=== PATIENT | female | born 1985 | race Caucasian/White ===

== ENCOUNTER 2020-09-08 10:49 | Outpatient (CLI) | payer OTHER, SELFPAY | END 2020-09-08 10:50 | disposition home or self-care (01) | LOC: ANHSURGERY 10:52 | PROVIDERS: PCP Family Medicine; Visit Provider Obstetrics & Gynecology | DX: N92.0 Excessive and frequent menstruation with regular cycle (principal); Z01.818 Encounter for other preprocedural examination | CPT/HCPCS: 36415; 86850; 86900; 86901 ==

== ENCOUNTER 2020-09-13 00:28 | Outpatient (CLI) | payer OTHER, SELFPAY ==
[2020-09-13 21:18] LABS: SARS-CoV-2 RNA PCR Negative
== END 2020-09-13 00:29 | disposition home or self-care (01) ==
LOC: ANHCOVIDDT 00:28
PROVIDERS: PCP Family Medicine; Visit Provider Obstetrics & Gynecology
DX: Z01.812 Encounter for preprocedural laboratory examination (principal); Z20.828 Contact with and (suspected) exposure to other viral communicable diseases
CPT/HCPCS: 87635; C9803; U0003

== ENCOUNTER 2020-09-16 01:04 | Day surgery (SDC) | payer OTHER, SELFPAY ==
[2020-09-01 15:40] VITALS: BMI 23.3
--- NOTE | 2020-09-15 11:52 | WPDANESEPPF ---
Anes - Initial Pre Proc Eval Procedure: Operation Date: 09/16/20 07:30 Proposed Procedures p Total Laparoscopic Hysterectomy, Bilateral Salpingo-Oophorectomy - Becki Desir MD Date/Time: 09/15/20 11:52 Surgeon: Becki Desir MD Pre Op Diagnosis: menorrhaghia Patient Data Age: 35 Gender: F Height: 1.63 m Weight: 61.69 kg Allergies Allergy/AdvReac Type Severity Reaction Status Date / Time cefaclor Allergy Mild Hives Verified 06/12/20 13:14 Home Medications Medication Instructions Recorded Confirmed Type wpguldap-jsq-odnw-FA-Ca carb-vit K 1 tablet PO DAILY 06/12/20 09/16/20 History 18 mg iron-400 mcg-500 mg tablet norethindrone (contraceptive) 0.35 0.35 mg PO DAILY 06/12/20 09/16/20 History mg tablet Patient hx anesthesia problems: none Family hx anesthesia problems: none PMFSH Past Medical History Medical History (Updated 09/15/20 @ 11:54 by Merrill Guadarrama MD) Anxiety Rheumatoid arthritis Tobacco abuse Family History Family History Mother Diabetes mellitus Hypertension Ovarian cancer Father Diabetes mellitus Grandparent Hypertension Breast cancer Grandparent Diabetes mellitus Dementia Alzheimer disease Grandparent Alzheimer disease Heart attack Social History Social History Smoking packs per day: 0.5 Smoking cigarettes per day: 10.0 Years smoked: 16 Smoking pack-years: 8.00 Smoking status: Current every day smoker Tobacco type: cigarettes Alcohol intake: never Substance use: never Substance use type: does not use Living arrangements: with family Spiritual care concerns: No Anes - Eval Final PreProcedure Day of Procedure 09/15/20 11:52 Patient weight: normal Heart: regular rate and rhythm Lungs: clear to auscultation and normal air movement Airway: Mallampati scale class II Neurological: alert and oriented Last oral intake: >/= 8 hours ASA classification: II Emergent: no Anesthetic plan: proceed Anesthesia type and monitoring: general ETT Informed Consent: The patient's anesthetic plan and its attendant risks and benefits were discussed with the patient/family/POA. Questions were solicited and answers provided to the satisfaction of the patient/family/POA.
[2020-09-16] VITALS (15 sets, daily range): BP systolic 89–131; BP diastolic 41–96; PULSE 59–94; RESP 16–20; TEMP 36.2–36.9; O2SAT 99–100
[2020-09-16] MEDS: LACTATED RINGERS 1,000 ML 30 ML IV CONT ×2 (06:40→09:10)
[2020-09-16] MEDS: ACETAMINOPHEN 500 MG TABLET 1000 MG PO (06:42)
[2020-09-16] MEDS: KETOROLAC 15 MG/ML VIAL (*BKC) IV PUSH (06:52)
[2020-09-16] MEDS: SCOPOLAMINE 1.5 MG PATCH TRANSDERM (07:11)
--- NOTE | 2020-09-16 07:12 | WPDHPUPDATE1 ---
History and Physical Update Update Date/Time: 09/16/20 07:12 History and Physical has been reviewed, including an updated exam of the patient. There are NO changes in the patient's condition. Risks, benefits, and alternatives have been discussed and questions answered. Patient agrees to proceed with procedure.
[2020-09-16] MEDS: GENTAMICIN SULFATE INJ 310 MG in DEXTROSE 5% 100 ML 100 MG IVPB (07:28)
[2020-09-16] MEDS: CLINDAMYCIN 900 MG/D5W 50 ML 900 MG/50 ML PIGGYBACK 50 MG IVPB (07:47)
--- NOTE | 2020-09-16 09:01 | P.OP_ITS ---
Procedure Note - Detailed Date of procedure: 09/16/20 Pre-op diagnosis: menorrhaghia Severe menorrhagia Post-op diagnosis: same Procedure performed: Total laparoscopic hysterectomy bilateral salpingo- oophorectomy Description of procedure: The patient was taken to the operating room. She was prepped and draped in the dorsal lithotomy position. A speculum was placed in the vagina. The cervix was grasped with a tenaculum. Stay sutures were placed at 3 and 9:00 a.m. of 0 Vicryl. The stay sutures were brought through the Allie up. The DANICA manipulator was placed in the vagina with a fixed Allie cup. The cup was then pushed up around the cervix. The sutures were tied to the handle of the DANICA manipulator. A 5 mm incision was made on the abdominal skin of the left upper quadrant using a scalpel. A 5 mm trocar was inserted into the intra-abdominal cavity under direct visualization the scope. Pneumoperitoneum was achieved. An 11 mm incision was made in the left lower quadrant of the abdomen with a scalpel. A 11 mm trocar was inserted into the intra-abdominal cavity under direct visualization the scope. A 5 mm periumbilical incision was made. A 5 mm scope was placed into the intra-abdominal cavity under direct visualization of the scope. The ureters were identified. The ureters were observed to be away from the infundibulopelvic ligaments. These infundibulopelvic ligaments were isolated, cauterized, and transected with LigaSure cautery. This was done in a bilateral fashion. The para ovarian tissue along the pelvic sidewall was cauterized and transected in a bilateral fashion using the ligature cautery. The round ligaments were cauterized and transected bilaterally with LigaSure cautery. The broad ligaments were cauterized and transected along the lateral aspects of the uterus down the level of the uterine arteries. A bladder flap was created using sharp and blunt dissection. The ureters were dissected out bilaterally down to the level of the uterine arteries. The could be visualized from the pelvic brim down the uterine arteries. Staying very close to the cervix the parametrium was cauterized transected in a stepwise fashion down to the level of the Allie cup. The Bladder flap was moved distally over the Allie cup using sharp and blunt dissection. The cup was visualized and a complete 360 degree papillary around the cervix. An incision was made with unipolar cautery down under the Allie cup creating a colpotomy incision all the way around the cervix. The uterus tubes and ovaries were taken out through the vagina. A pneumo occluder was placed in the vagina. The vagina was closed with 0 V lock suture in a running fashion. The ureters were identified again and found to be intact elevated and the uterine arteries. The pelvis was irrigated with a copious amount of antibiotic irrigation. The pneumoperitoneum was reduced. The trocars were removed. The skin was closed subcuticular 4 Monocryl covered with Dermabond. The pneumo occluder was removed from the vagina. The vagina was irrigated with Betadine. The patient tolerated the procedure well. She was taken to the recovery room in stable condition. Sponge lap and needle counts were correct x2. Anesthesia: GETA Surgeon: Becki Desir MD Estimated blood loss (mL): 200 Drains: No Packing: No Pathology: yes Complications: No immediate complications Condition: stable Disposition: PACU Findings: Grossly normal-appearing tubes and ovaries. enlarged boggy uterus.
--- NOTE | 2020-09-16 10:19 | PC.NURSE ---
Addendum entered by Aleyda Erazo RN 09/16/20 10:25: Admitted to room 282 at 0955. Original Note: This patient, Gila Rouse, was received from PACU on 09/16/20 at 0955. Patient oriented to unit policies and routines
[2020-09-16] MEDS: LACTATED RINGERS 1,000 ML 125 ML (10:56)
[2020-09-16] MEDS: KETOROLAC 30 MG/ML VIAL (*BKC) IM (13:47)
[2020-09-16] MEDS: ONDANSETRON INJ 4 MG/2 ML VIAL IV PUSH (13:47)
[2020-09-16] MEDS: IBUPROFEN 600 MG TABLET PO (21:17)
[2020-09-16] MEDS: ACETAMINOPHEN 325 MG TABLET 650 MG PO (21:19)
[2020-09-17 04:30] VITALS: BP 95/50; PULSE 77; RESP 18; TEMP 36.6; O2SAT 100
[2020-09-17] MEDS: IBUPROFEN 600 MG TABLET PO (07:52)
[2020-09-17] MEDS: ACETAMINOPHEN 325 MG TABLET 650 MG PO (07:53)
[2020-09-17 08:00] VITALS: BP 129/62; PULSE 85; PULSE 86; RESP 20; TEMP 36.5; O2SAT 100
--- NOTE | 2020-09-17 08:49 | PM.GYNPNOP ---
ACID TREATER - A/P Postoperative Procedures: Procedures Operation Date: 09/16/20 07:30 Actual Procedures Side Surgeon p Total Laparoscopic Hysterectomy, Bilateral Salpingo-Oophorectomy Bilateral Becki Desir MD Postoperative day: 1 Postoperative status: doing well and other (Tollerating Regular Diet) Postoperative plan: routine post-op care and discharge Time Spent With Patient Time: Total time spent is greater than 50% in coordination of care (as documented) at patient's floor/unit and/or counseling patient: Time with patient: 15 - 25 minutes ACID TREATER- PN:Subj Post-Op Subjective Date/time seen: 09/17/20 08:49 Subjective: patient reports feeling better, pain is well controlled and patient is tolerating oral intake Exam Const: General: cooperative, healthy appearing, comfortable and no acute distress Resp: Auscultation: no crackles, no rales, no rhonchi and no wheezes Cardio: Rhythm: regular rhythm Heart sounds: no click and no murmurs GI: Inspection: non-distended Auscultation: normal bowel sounds Other: Incisions - CDI Extrem: General: normal to inspection, no pedal edema and no calf tenderness ACID TREATER - PN: Obj Data Vital Signs Vital Signs: Vital Signs - 24 hr 09/16/20 09:03 09/16/20 09:18 09/16/20 09:33 Temperature 97.1 F L Pulse Rate 94 87 88 Respiratory Rate Blood Pressure 107/67 111/69 108/68 Pulse Oximetry 100 100 100 09/16/20 09:48 09/16/20 10:00 09/16/20 10:15 Temperature 98.3 F Pulse Rate 84 87 62 Respiratory Rate 16 16 Blood Pressure 103/69 100/58 L 105/56 L Pulse Oximetry 99 100 09/16/20 10:30 09/16/20 11:00 09/16/20 11:30 Temperature Pulse Rate 69 59 L 77 Respiratory Rate 16 16 16 Blood Pressure 98/41 L 99/52 L 94/48 L Pulse Oximetry 100 100 100 09/16/20 12:00 09/16/20 13:00 09/16/20 15:00 Temperature 98.5 F 98 F Pulse Rate 66 77 86 Respiratory Rate 16 16 20 Blood Pressure 93/46 L 91/45 L 104/64 Pulse Oximetry 99 100 09/16/20 20:00 09/16/20 23:42 09/17/20 04:30 Temperature 98.2 F 97.6 F 97.8 F Pulse Rate 76 62 77 Respiratory Rate 18 18 18 Blood Pressure 96/51 L 89/50 L 95/50 L Pulse Oximetry 100 99 100 Intake/Output Intake/Output: Intake & Output 09/14/20 09/15/20 09/16/20 09/17/20 23:59 23:59 23:59 23:59 Intake Total 2407.75 Output Total 1400 Balance 1007.75 Meds/Results Medications: Active Medications Generic Name Dose Route Start Last Admin Trade Name Freq PRN Reason Stop Dose Admin Acetaminophen 650 mg 09/16/20 20:34 09/17/20 07:53 Acetaminophen 325 Mg Tablet PO 650 mg Q6H PRN Administration Mild Pain (1-3) or Fever Ibuprofen 600 mg 09/16/20 20:33 09/17/20 07:52 Ibuprofen 600 Mg Tablet PO 600 mg Q6H PRN Administration Cramping Ketorolac Tromethamine 30 mg 09/16/20 13:30 09/16/20 13:47 Ketorolac 30 Mg/Ml Vial (*Bkc) IM 30 mg Q6H PRN Administration Pain Rated 4-6 Ondansetron HCl 4 mg 09/16/20 13:27 09/16/20 13:47 Ondansetron Inj 4 Mg/2 Ml Vial IV PUSH 4 mg Q6H PRN Administration Nausea And Vomiting
--- NOTE | 2020-09-17 09:54 | WPDANESPN ---
Anes - Prog Note Post-Op Date/Time: 09/17/20 09:54 Cardiovascular status: normal Respiratory status: normal Airway patency: baseline Mental status: baseline Post-Op hydration status: normal Vital Signs: Last Vital Signs Temp 36.6 C 09/17/20 04:30 Pulse 77 09/17/20 04:30 Resp 18 09/17/20 04:30 BP 95/50 L 09/17/20 04:30 Pulse Ox 100 09/17/20 04:30 Pain Score (VAS): 0 I/O: Intake & Output 09/16/20 09/17/20 09/17/20 23:59 07:59 15:59 Intake Total 1050 Output Total 1400 Balance -350 Post-procedural complaints: none Patient Feedback: Patient satisfied with anesthetic care.
--- NOTE | 2020-09-17 10:02 | PC.NURSE ---
Discharge instructions given to pt. Pt. verbalized understanding. No questions or concerns voiced. Very pleasant and cooperative.
== END 2020-09-17 10:42 | disposition home or self-care (01) ==
LOC: ANHSURGERY 07:12 → ANHOB2 09:52
PROVIDERS: PCP Family Medicine; Visit Provider Obstetrics & Gynecology
PROC: 0UT9FZZ Resection of Uterus, Via Natural or Artificial Opening With Percutaneous Endoscopic Assistance (ICD-10-PCS; CPT 58571; principal; 2020-09-16 07:30)
DX: N92.0 Excessive and frequent menstruation with regular cycle (principal); D25.1 Intramural leiomyoma of uterus; N83.02 Follicular cyst of left ovary; N83.01 Follicular cyst of right ovary; N80.0 Endometriosis of uterus; D27.1 Benign neoplasm of left ovary; F17.210 Nicotine dependence, cigarettes, uncomplicated
CPT/HCPCS: 58571; 88307; 99199; A9270; J1100; J1170; J1580; J1885; J2001; J2250; J2405; J2704; J2710; J3010; J7030; J7120

== ENCOUNTER 2021-02-02 15:31 | Emergency (ER) | payer OTHER, SELFPAY ==
--- NOTE | ~2021-02-02 | XR_ITS ---
EXAMINATION: XR shoulder LT min 2V INDICATION: Left shoulder pain TECHNIQUE: Four views of the left shoulder are submitted. COMPARISON: None FINDINGS: Normal alignment. No fracture. Glenohumeral and acromioclavicular joint spaces are normal. Soft tissues are unremarkable. IMPRESSION: 1. No acute osseous abnormality. Reviewed, dictated and finalized at location A.
[2021-02-02 15:46] VITALS: BP 107/75; PULSE 105; RESP 14; TEMP 37.6; O2SAT 98
--- NOTE | 2021-02-02 15:51 | ED.UPPEXIN ---
HPI - Extremity Injury (Upper) General Chief Complaint: Extremity Problem,Nontraumatic Stated Complaint: left shoulder pain Time Seen by Provider: 02/02/21 15:51 Source: patient and RN notes reviewed History of Present Illness HPI narrative: Patient is a 35-year-old female who presents the urgent care with complaints of left shoulder pain. Patient states that it started on without any known injury or trauma. Patient states that she did help clean out the garage on but nothing out of the ordinary . Patient denies of any heavy lifting or pushing or pulling. Patient states that she has been taking ibuprofen with some mild decrease in pain. Patient states she is also been wearing a sling to the left arm since Tuesday. Patient states that her pain is exacerbated with any lifting of the shoulder or movement of the left arm. Patient currently denies of any chest pain or any other acute complaints. No acute distress noted. Patient aware of the plan of care. Some parts of this dictation were generated by voice recognition software and may contain typographical and/or grammatical inaccuracies. Related Data Home Medications Medication Instructions Recorded Confirmed zkxzoycm-txj-mnxw-FA-Ca carb-vit K 1 tablet PO DAILY 06/12/20 02/02/21 18 mg iron-400 mcg-500 mg tablet Rubarb Root 02/02/21 Allergies Allergy/AdvReac Type Severity Reaction Status Date / Time cefaclor Allergy Mild Hives Verified 02/02/21 15:48 Review of Systems Review of Systems: Narrative: CONSTITUTIONAL: Denies fever, chills, or sweats. EYES: Denies visual changes, redness, or discharge. ENT: Denies rhinorrhea, congestion, sore throat, or otalgia. CARDIOVASCULAR: Denies chest pain, palpitations, or edema. RESPIRATORY: Denies cough or dyspnea. GASTROINTESTINAL: Denies abdominal pain, nausea, vomiting, or diarrhea. GENITOURINARY: Denies dysuria or hematuria. SKIN: Denies rash or itching. MUSCULOSKELETAL: Reports of left shoulder pain NEUROLOGIC: Denies headache, numbness, or weakness. All other systems reviewed are negative, except as documented in HPI. [facility] Past Medical History Medical History (Updated 02/02/21 @ 16:22 by DIXIE Mills) Anxiety Rheumatoid arthritis Tobacco abuse Family History Family History Mother Diabetes mellitus Hypertension Ovarian cancer Father Diabetes mellitus Grandparent Hypertension Breast cancer Grandparent Diabetes mellitus Dementia Alzheimer disease Grandparent Alzheimer disease Heart attack Social History Social History Smoking packs per day: 0.5 Smoking cigarettes per day: 10.0 Years smoked: 16 Smoking pack-years: 8.00 Smoking status: Current every day smoker Tobacco type: cigarettes Alcohol intake: never Substance use: never Substance use type: does not use Spiritual care concerns: No Comments At the time of my signature, I reviewed and agree with the nursing past medical, surgical, social, and family history. There is no relevant family history pertinent to the patient complaint. Exam Narrative: Exam Narrative: GENERAL: This is a well-nourished, well-developed patient, in no apparent distress. HEAD: normocephalic, atraumatic. EYES: PERRL. Sclera clear/white. Vision is grossly intact. EARS: External ears normal NOSE: External nose normal with no obvious nasal discharge, nares without redness, no rhinorrhea. THROAT: Mucous membranes moist NECK: Neck supple SKIN: warm, intact with no suspicious lesions or rash, good texture and turgor. NEURO: awake, alert, and oriented to person, place and time. There were no obvious focal neurologic abnormalities. EXTREMITIES: Anterior left shoulder tenderness with exacerbated pain on abduction, internal and external rotation. Negative posterior tenderness. 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 Positive strong left radial
== END 2021-02-02 16:26 | disposition home or self-care (01) ==
PROVIDERS: Emergency Provider Nurse Practitioner Family; PCP Family Medicine
DX: M25.512 Pain in left shoulder (principal); F17.210 Nicotine dependence, cigarettes, uncomplicated; M06.9 Rheumatoid arthritis, unspecified
CPT/HCPCS: 73030; 99213; G0463

== ENCOUNTER 2022-02-23 16:14 | Emergency (ER) | payer OTHER, SELFPAY ==
[2022-02-23 16:18] VITALS: BP 128/64; PULSE 97; RESP 16; TEMP 36.8; O2SAT 100
--- NOTE | 2022-02-23 16:22 | ED.SKABFB ---
HPI - Skin/Abscess/Foreign Bdy General Chief complaint: Skin/Abscess/Foreign Body Stated complaint: rash under left arm Time Seen by Provider: 02/23/22 16:22 Source: patient and RN notes reviewed History of Present Illness HPI narrative: Patient is a 37-year-old female who presents the urgent care with complaints of rash to the right wrist. Patient states she noticed it on Tuesday and believes it is poison cici. Patient states she is been using calamine with mild improvement. Patient also reports of a painful itchy rash under the left arm. Patient states she noticed that on Tuesday. Patient states she is concerned for possible shingles which she does have a history of in the past. No other acute complaints. No acute distress noted. Patient aware of the plan of care. Some parts of this dictation were generated by voice recognition software and may contain typographical and/or grammatical inaccuracies. Related Data Allergies Allergy/AdvReac Type Severity Reaction Status Date / Time cefaclor Allergy Mild Hives Verified 04/09/21 13:05 Review of Systems Review of Systems: CONSTITUTIONAL: Denies fever, chills, or sweats. EYES: Denies visual changes, redness, or discharge. ENT: Denies rhinorrhea, congestion, sore throat, or otalgia. CARDIOVASCULAR: Denies chest pain, palpitations, or edema. RESPIRATORY: Denies cough or dyspnea. GASTROINTESTINAL: Denies abdominal pain, nausea, vomiting, or diarrhea. GENITOURINARY: Denies dysuria or hematuria. SKIN: Reports of a painful rash under the left underarm and itchy painful rash to the right wrist MUSCULOSKELETAL: Denies back pain, joint pain, or myalgia. NEUROLOGIC: Denies headache, numbness, or weakness. All other systems reviewed are negative, except as documented in HPI. [facility] Past Medical History Medical History Anxiety Rheumatoid arthritis Tobacco abuse Surgical History Surgical History History of hysterectomy Family History Family History Mother Diabetes mellitus Hypertension Ovarian cancer Father Diabetes mellitus Grandparent Hypertension Breast cancer Grandparent Diabetes mellitus Dementia Alzheimer disease Grandparent Alzheimer disease Heart attack Social History Social History Smoking packs per day: 0.5 Smoking cigarettes per day: 10.0 Years smoked: 16 Smoking pack-years: 8.00 Smoking status: Current every day smoker Tobacco type: cigarettes Alcohol intake: never Substance use: never Substance use type: does not use Spiritual care concerns: No Comments At the time of my signature, I reviewed and agree with the nursing past medical, surgical, social, and family history. There is no relevant family history pertinent to the patient complaint. Exam Narrative: GENERAL: This is a well-nourished, well-developed patient, in no apparent distress. HEAD: normocephalic, atraumatic. EYES: PERRL. Sclera clear/white. Vision is grossly intact. EARS: External ears normal NOSE: External nose normal with no obvious nasal discharge, nares without redness, no rhinorrhea. THROAT: Mucous membranes moist NECK: Neck supple CARDIOVASCULAR: Regular rate and rhythm without murmurs, gallops, or rubs. RESPIRATORY: Clear to auscultation. Breath sounds equal bilaterally. No wheezes, rales, or rhonchi. SKIN: rhus dermatitis noted to the right wrist. Linear vesicular dermatitis noted to the left axilla, suspicious for herpes zoster. warm, intact with no suspicious lesions or rash, good texture and turgor. NEURO: awake, alert, and oriented to person, place and time. There were no obvious focal neurologic abnormalities. EXTREMITIES: No clubbing, cyanosis, or edema. Course Course Level of Care: Express Care Visit Vital Signs Vital signs: V
== END 2022-02-23 16:56 | disposition home or self-care (01) ==
PROVIDERS: Emergency Provider Nurse Practitioner Family; PCP Family Medicine
DX: L23.7 Allergic contact dermatitis due to plants, except food (principal); F17.210 Nicotine dependence, cigarettes, uncomplicated; M06.9 Rheumatoid arthritis, unspecified
CPT/HCPCS: 99213; G0463

== ENCOUNTER 2022-04-12 09:58 | Outpatient (CLI) | payer OTHER, SELFPAY ==
[2022-04-12 19:23] LABS: Alanine Aminotransferase 38 U/L (6-35); Albumin Level 4.6 g/dL (3.5-5.1); Alkaline Phosphatase 84 U/L (38-126); Anion Gap 9 mmol/L (8-16); Aspartate Amino Transferase 24 U/L (14-36); Bilirubin,Total 0.4 mg/dL (0.2-1.3); Blood Urea Nitrogen 10 mg/dL (7-17); Calcium 9.3 mg/dL (8.4-10.2); Carbon Dioxide 23 mmol/L (22-30); Chloride 106 mmol/L (98-107); Cholesterol 148 mg/dL (0-200); Estimated Glomerular Filt Rate > 60; Glucose 92 mg/dL (65-110); HDL Direct 62 mg/dL; Potassium 4.3 mmol/L (3.4-5.0); Sodium 138 mmol/L (137-145); Triglycerides 65 mg/dL (<150)
[2022-04-12 19:26] LABS: Basophils Percent Auto 0.5 % (0.2-1.2); Eosinophils Absolute Auto 0.1 K/mm3 (0-0.3); Eosinophils Percent Auto 1.6 % (0-4.4); Hematocrit 44.7 % (37.0-47.0); Hemoglobin 14.4 g/dL (12.0-15.0); Immature Granulocyte Absolute 0.01 K/mm3 (0.00-0.031); Immature Granulocyte Percent A 0.2 % (0-0.5); Lymphocytes Absolute Auto 2.28 K/mm3 (0.9-3.2); Lymphocytes Percent Auto 39.7 % (18.3-44.2); Mean Corpuscular HGB Conc 32.2 g/dl (32-36); Mean Corpuscular Hemoglobin 29.8 pg (26-34); Mean Corpuscular Volume 92.5 fl (80-100); Monocytes Absolute Auto 0.4 K/mm3 (0.1-0.6); Monocytes Percent Auto 7.3 % (2.6-8.5); Neutrophils Absolute Auto 2.9 K/mm3 (1.3-6.7); Neutrophils Percent Auto 50.7 % (45.5-73.1); Platelet Count Result 186 k/mm3 (150-375); Red Blood Count 4.83 M/mm3 (4.2-5.4); Red Cell Distribution Width 12.7 % (11.5-14.5); White Blood Count 5.8 K/mm3 (4.5-10.0)
[2022-04-12 19:34] LABS: LDL Cholesterol Direct 67 mg/dL
[2022-04-12 19:40] LABS: Rheumatoid Factor < 8.6 IU/ML (<12)
[2022-04-15 23:59] LABS: Anti Nuclear Antibody Titer 1:40 (Negative)
[2022-04-19 14:08] LABS: Cyclic Citrullinated Peptide <16
== END 2022-04-12 09:59 | disposition home or self-care (01) ==
PROVIDERS: PCP Family Medicine; Visit Provider Family Medicine
DX: Z00.00 Encounter for general adult medical examination without abnormal findings (principal); M06.9 Rheumatoid arthritis, unspecified
CPT/HCPCS: 36415; 80053; 80061; 85025; 86038; 86039; 86430

== ENCOUNTER 2022-07-13 12:59 | Outpatient (CLI) | payer OTHER, SELFPAY ==
--- NOTE | ~2022-07-13 | XR_ITS ---
EXAM: XR sacroiliac joints min 3V DATE: 07/13/2022 13:46 HISTORY: R74.8 - Abnormal levels of other serum enzymes . COMPARISON: None available. FINDINGS: Normal mineralization. No fracture or dislocation. No lytic or blastic lesion. Joint space s are maintained. No erosion or periosteal change. Soft tissues within normal limits. IMPRESSION: Radiographically normal sacroiliac joints. Reviewed, dictated and finalized at location K.
--- NOTE | ~2022-07-13 | XR_ITS ---
EXAM: XR cervical spine 4-5V DATE: 07/13/2022 13:46 HISTORY: R74.8 - Abnormal levels of other serum enzymes . COMPARISON: None available. FINDINGS: Craniocervical association and atlantoaxial joint are normal. No prevertebral soft tissue swelling. Loss of the cervical lordosis centered at C5-6. 1 mm anterolisthesis at C3-4. 2 mm anteroli sthesis at C4-5. Vertebral body heights are maintained. Mild disc space narrowing at C2-3, and C5-6 t hrough C7-T1. No significant neural foraminal stenosis. Normal facets and posterior elements. IMPRESSION: Mild grade 1 anterolistheses at C3-4 and C4-5. Mild degenerative disc disease in the cerv ical spine, detailed above. Reviewed, dictated and finalized at location K. IMPRESSION: Mild grade 1 anterolistheses at C3-4 and C4-5. Mild degenerative di sc disease in the cervical spine, detailed above.
--- NOTE | ~2022-07-13 | XR_ITS ---
EXAM: XR hand BI arthritis min 3V DATE: 07/13/2022 13:45 HISTORY: chronic pain in multiple joints x 8 months . COMPARISON: None available. FINDINGS: Normal mineralization. No fracture or dislocation. No lytic or blastic lesion. Mild narrow ing and sclerosis with osteophytosis at the right fourth PIP, remaining joint spaces are maintained. No erosion or periosteal change. Soft tissues within normal limits. IMPRESSION: Mild osteoarthritic change in the right fourth PIP joint. Reviewed, dictated and finalized at location K.
--- NOTE | ~2022-07-13 | XR_ITS ---
EXAM: XR lumbar spine min 4V DATE: 07/13/2022 13:46 HISTORY: R74.8 - Abnormal levels of other serum enzymes . COMPARISON: None available. FINDINGS: Cholecystectomy clips. 5 nonrib-bearing lumbar-type vertebral bodies. Pedicles intact. Norm al vertebral body alignment. Vertebral body heights preserved. Mild disc space narrowing at L4-5. Nor mal facets and posterior elements. No pars defect. No fracture or dislocation. IMPRESSION: Mild L4-5 degenerative disc disease. Reviewed, dictated and finalized at location K.
[2022-07-13 19:01] LABS: Alanine Aminotransferase 40 U/L (6-35); Albumin Level 4.7 g/dL (3.5-5.1); Alkaline Phosphatase 109 U/L (38-126); Aspartate Amino Transferase 66 U/L (14-36); Bilirubin,Total 0.5 mg/dL (0.2-1.3)
== END 2022-07-13 13:00 | disposition home or self-care (01) ==
PROVIDERS: PCP Family Medicine; Visit Provider Internal Medicine
DX: M19.90 Unspecified osteoarthritis, unspecified site (principal); R74.8 Abnormal levels of other serum enzymes; R79.89 Other specified abnormal findings of blood chemistry; Z72.0 Tobacco use; Z79.899 Other long term (current) drug therapy; M51.36 Other intervertebral disc degeneration, lumbar region; M50.30 Other cervical disc degeneration, unspecified cervical region; M19.041 Primary osteoarthritis, right hand
CPT/HCPCS: 36415; 72050; 72110; 72202; 73130; 80076

== ENCOUNTER 2022-07-16 11:17 | Outpatient (CLI) | payer OTHER, SELFPAY ==
[2022-07-16 19:30] LABS: Alanine Aminotransferase 46 U/L (6-35); Albumin Level 4.5 g/dL (3.5-5.1); Alkaline Phosphatase 82 U/L (38-126); Anion Gap 13 mmol/L (8-16); Aspartate Amino Transferase 74 U/L (14-36); Bilirubin,Total 0.3 mg/dL (0.2-1.3); Blood Urea Nitrogen 13 mg/dL (7-17); Calcium 8.7 mg/dL (8.4-10.2); Carbon Dioxide 26 mmol/L (22-30); Chloride 104 mmol/L (98-107); Estimated Glomerular Filt Rate > 60; Glucose 93 mg/dL (65-110); Sodium 143 mmol/L (137-145)
[2022-07-16 20:01] LABS: Hepatitis B Surface Antigen Negative (Negative)
[2022-07-16 20:07] LABS: HAV RESULT Negative (Negative); Hepatitis B Core IgM Result Negative (Negative)
[2022-07-16 20:18] LABS: Hepatitis C Virus Antibody Negative (Negative)
[2022-07-19 22:00] LABS: Mitochondrial (M2) Ab (IgG) <=20.0 U (<=20.0)
== END 2022-07-16 11:18 | disposition home or self-care (01) ==
LOC: ANHBWCLAB 11:19
PROVIDERS: PCP Family Medicine; Visit Provider Internal Medicine
DX: M19.90 Unspecified osteoarthritis, unspecified site (principal); R74.8 Abnormal levels of other serum enzymes; R76.8 Other specified abnormal immunological findings in serum
CPT/HCPCS: 36415; 80053; 80074; 83520

== ENCOUNTER 2022-08-30 12:00 | Emergency (ER) | payer OTHER, SELFPAY ==
[2022-08-30 12:27] VITALS: BP 111/70; PULSE 83; RESP 16; TEMP 36.5; O2SAT 100
--- NOTE | 2022-08-30 13:29 | ED.GENADULT ---
HPI - General Adult General Chief complaint: Extremity Injury, Lower Stated complaint: right shoulder blade pain Time Seen by Provider: 08/30/22 13:29 Source: patient, RN notes reviewed and old records reviewed Mode of arrival: ambulatory Limitations: no limitations History of Present Illness HPI narrative: 37-year-old female who presents to [facility] with complaints of right shoulder blade pain which started this morning when she stretched and felt a pop. Patient reports that she has pain to right arm and is unable to turn head without discomfort also. Patient reports that she has experienced this in the past about 5 years ago and it resolved with anti-inflammatory meds and muscle relaxer. She reports that she has some right shoulder pain and she has some intermittent numbness to her right arm MD complaint: right shoulder blade pain Onset (ago): hour(s) (since this morning) Severity scale (1-10): 7 Treatments prior to arrival: none Related Data Allergies Allergy/AdvReac Type Severity Reaction Status Date / Time cefaclor Allergy Mild Hives Verified 08/30/22 12:25 Review of Systems Review of Systems: CONSTITUTIONAL: Denies fever, chills, or sweats. CARDIOVASCULAR: Denies chest pain, palpitations, or edema. RESPIRATORY: Denies cough or dyspnea. GASTROINTESTINAL: Denies abdominal pain, nausea, vomiting, or diarrhea. GENITOURINARY: Denies dysuria or hematuria. SKIN: Denies rash or itching. MUSCULOSKELETAL: Reports right scapular back pain radiating to right side of neck and posterior right shoulder.Joint pain or myalgia. NEUROLOGIC: Denies headache, intermittent numbness to right arm reported, no weakness. All systems reviewed & are unremarkable except as noted in HPI and below PMFSH Past Medical History Medical History DEBBI positive Anxiety Inflammatory arthritis Rheumatoid arthritis Tobacco abuse Surgical History Surgical History History of hysterectomy Family History Family History Mother Diabetes mellitus Hypertension Ovarian cancer Father Diabetes mellitus Grandparent Hypertension Breast cancer Grandparent Diabetes mellitus Dementia Alzheimer disease Grandparent Alzheimer disease Heart attack Social History Social History Smoking packs per day: 0.5 Smoking cigarettes per day: 10.0 Years smoked: 16 Smoking pack-years: 8.00 Smoking status: Current every day smoker Tobacco type: cigarettes Alcohol intake: never Substance use: never Substance use type: does not use Spiritual care concerns: No Comments At time of signature, agree with nursing past medical, surgical, social and family history. There is no relevant family history pertinent to the presenting complaint Exam Narrative: GENERAL: Well-appearing, well-nourished, and in no acute distress. HEAD: Normocephalic, atraumatic. EYES: PERRLA and EOMI. NECK: Supple. No lymphadenopathy.Patient has no nuchal rigidity, can move neck on own power with stated discomfort to right side of neck CHEST: Clear to auscultation. No respiratory distress. SAO2 100% on room air HEART: Regular rate and rhythm. Distal pulses palpable and equal, cap refill <3 seconds ABDOMEN: Soft, nontender, nondistended, normal active bowel sounds, no palpable or pulsatile masses. No CVA tenderness MUSCULOSKELETAL: Normal range of motion and strength in all extremities; 5/5 strength with hip flexion and extension, dorsiflexion and extension, knee flexion and extension, plantar flexion and extension. Normal sensation in dermatomal distributions with sensitivity to light touch and pain. No midline back tenderness to palpation. No paraspinal tenderness. Transfers from lying to sitting to standing. SKIN: Warm, dry, no rash. No
== END 2022-08-30 13:48 | disposition home or self-care (01) ==
PROVIDERS: Emergency Provider Registered Nurse; PCP Family Medicine
DX: S46.812A Strain of other muscles, fascia and tendons at shoulder and upper arm level, left arm, initial encounter (principal); F17.210 Nicotine dependence, cigarettes, uncomplicated; X50.1XXA Overexertion from prolonged static or awkward postures, initial encounter
CPT/HCPCS: 99213; G0463

== ENCOUNTER 2023-04-18 13:08 | Outpatient (CLI) | payer OTHER, SELFPAY ==
[2023-04-18 18:45] LABS: Basophils Percent Auto 0.6 % (0.2-1.2); Eosinophils Absolute Auto 0.1 K/mm3 (0-0.3); Eosinophils Percent Auto 1.9 % (0-4.4); Hematocrit 43.1 % (37.0-47.0); Hemoglobin 14.3 g/dL (12.0-15.0); Immature Granulocyte Absolute 0.02 K/mm3 (0.00-0.031); Immature Granulocyte Percent A 0.3 % (0-0.5); Lymphocytes Absolute Auto 2.68 K/mm3 (0.9-3.2); Lymphocytes Percent Auto 39.1 % (18.3-44.2); Mean Corpuscular HGB Conc 33.2 g/dl (32-36); Mean Corpuscular Hemoglobin 29.7 pg (26-34); Mean Corpuscular Volume 89.4 fl (80-100); Mean Platelet Volume 11.7 fl (7.4-10.4); Monocytes Absolute Auto 0.5 K/mm3 (0.1-0.6); Monocytes Percent Auto 6.7 % (2.6-8.5); Neutrophils Absolute Auto 3.5 K/mm3 (1.3-6.7); Neutrophils Percent Auto 51.4 % (45.5-73.1); Platelet Count Result 206 k/mm3 (150-375); Red Blood Count 4.82 M/mm3 (4.2-5.4); Red Cell Distribution Width 12.6 % (11.5-14.5); White Blood Count 6.9 K/mm3 (4.5-10.0)
[2023-04-18 19:16] LABS: Alanine Aminotransferase 53 U/L (6-35); Albumin Level 4.6 g/dL (3.5-5.1); Alkaline Phosphatase 94 U/L (38-126); Anion Gap 5 mmol/L (8-16); Aspartate Amino Transferase 57 U/L (14-36); Bilirubin,Total 0.4 mg/dL (0.2-1.3); Blood Urea Nitrogen 10 mg/dL (7-17); CRP < 0.5 mg/dL (<1.0); Calcium 8.9 mg/dL (8.4-10.2); Carbon Dioxide 28 mmol/L (22-30); Chloride 105 mmol/L (98-107); Cholesterol 167 mg/dL (0-200); Estimated Glomerular Filt Rate > 60; Glucose 93 mg/dL (65-110); HDL Direct 50 mg/dL; Potassium 3.9 mmol/L (3.4-5.0); Sodium 138 mmol/L (137-145); Triglycerides 83 mg/dL (<150)
[2023-04-18 19:19] LABS: Erythrocyte Sedimentation Rate 7 mm/hr (0-20)
[2023-04-18 19:25] LABS: LDL Cholesterol Direct 102 mg/dL
[2023-04-18 19:34] LABS: Vitamin D 25 Hydroxy 27.2 ng/mL
[2023-04-22 14:01] LABS: ANA Titer 1:40 (Negative); Anti Nuclear Antibody Pattern Nuclear, Speckled
== END 2023-04-18 13:09 | disposition home or self-care (01) ==
LOC: ANHBWCLAB 13:09
PROVIDERS: PCP Family Medicine; Visit Provider Nurse Practitioner
DX: R53.83 Other fatigue (principal); G47.00 Insomnia, unspecified; M19.90 Unspecified osteoarthritis, unspecified site; R74.8 Abnormal levels of other serum enzymes; R79.89 Other specified abnormal findings of blood chemistry; F41.9 Anxiety disorder, unspecified; Z79.899 Other long term (current) drug therapy
CPT/HCPCS: 36415; 80053; 80061; 82306; 82607; 84443; 85025; 85652; 86038; 86039; 86140

== ENCOUNTER 2024-09-16 13:03 | Emergency (ER) | payer OTHER, SELFPAY ==
[2024-09-16 13:06] VITALS: BP 114/68; PULSE 74; RESP 18; TEMP 36.7; O2SAT 99
--- NOTE | 2024-09-16 13:46 | ED_ITS ---
HPI - General Adult General Chief complaint: Upper Respiratory Infection Stated complaint: throat Source: patient Mode of arrival: ambulatory Limitations: no limitations History of Present Illness HPI narrative: Patient presents for evaluation of sore throat for the last 2 days. She believes her symptoms are consistent with strep pharyngitis. She reports right sided otalgia, intermittent fever and chills with some nausea. No vomiting, diarrhea, cough or SOB. No recent sick contacts to her knowledge. She smokes 3/4 of a pack per day. She tried taking Tylenol and ibuprofen for symptoms Related Data Allergies Allergy/AdvReac Type Severity Reaction Status Date / Time cefaclor Allergy Mild Hives Verified 09/16/24 13:23 Review of Systems Review of Systems: CONSTITUTIONAL: Denies fever, chills, or sweats. EYES: Denies visual changes, redness, or discharge. ENT: Reports right ear pain and sore throat. Denies rhinorrhea and congestion CARDIOVASCULAR: Denies chest pain, palpitations, or edema. RESPIRATORY: Denies cough or dyspnea. GASTROINTESTINAL: Denies abdominal pain, nausea, vomiting, or diarrhea. GENITOURINARY: Denies dysuria or hematuria. SKIN: Denies rash or itching. MUSCULOSKELETAL: Denies back pain, joint pain, or myalgia. NEUROLOGIC: Denies headache, numbness, dizziness, or weakness. PSYCHIATRIC: Denies anxiety or depression. 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 Palpitations Rheumatoid arthritis Right ovarian cyst Tobacco abuse Surgical History Surgical History History of hysterectomy Family History Family History Mother Diabetes mellitus Hypertension Ovarian cancer Father Diabetes mellitus Grandparent Hypertension Breast cancer Grandparent Diabetes mellitus Dementia Alzheimer disease Grandparent Alzheimer disease Heart attack Social History Social History (Updated 09/16/24 @ 13:48 by DIXIE Driver, ) Smoking packs per day: 0.75 Smoking cigarettes per day: 15.0 Years smoked: 16 Smoking pack-years: 12.00 Smoking status: Current every day smoker Tobacco type: cigarettes Alcohol intake: never Substance use: never Substance use type: does not use Lack of Transportation: YES Lack of Food: Never True Current Housing: I Have Housing Concerned About Future Housing: No Difficulty Paying Gas/Electric Bills: No Difficulty Paying for Meds: No Currently Unemployed: No Education: High School Diploma/GED Difficulty w/ Childcare or Family Care: No Living arrangements: with family Spiritual care concerns: No Exam Narrative: GENERAL: Well-appearing, well-nourished, and in no acute distress. HEAD: Normocephalic, atraumatic. EYES: PERRLA and EOMI. ENT: Nares clear, no rhinorrhea or epistaxis. Mucous membranes moist. There is posterior pharyngeal erythema without exudate. Uvula is midline. Bilateral TMs pearly bautista nonbulging NECK: Supple. No adenopathy or masses. No carotid bruits or JVD CHEST: Clear to auscultation. No respiratory distress. No wheezes rales or rhonchi HEART: Regular rate and rhythm. No murmur heard. Normal peripheral pulses. ABDOMEN: Soft, nontender, nondistended, normal active bowel sounds. EXTREMITIES: Normal range of motion. No edema. SKIN: Warm, dry, no rash. NEURO: No focal deficits. Alert and oriented x3. PSYCH: Normal mood and affect. Course Course Emergency Course: This is a 39-year-old female who presented for evaluation of a sore throat. Rapid strep negative. Will send throat culture. She requested be treated for strep in the event that her test was a false negative. Increase hydration. [id number] agents for symptom management. Follow up with primary provider or worsening symptoms. Patient in agreement with plan of care. Level of Care: Express Care Visit Vital Signs Vital signs: Vital Signs Temperature 36.7 C 09/16/24 13:06 Pulse Rate 74 09/16/24 13:06 Respiratory Rate 18 09/16/24 13:06 Blood Pressure 114/68 09/16/24 13:06 Pulse Oximetry 99 09/16/24 13:06 Oxygen Delivery Room Air 09/16/24 13:06 Temperature 36.7 C 09/16/24 13:06 Pulse Rate 74 09/16/24 13:06 Respiratory Rate 18 09/16/24 13:06 Blood Pressure 114/68 09/16/24 13:06 Pulse Oximetry 99 09/16/24 13:06 Oxygen Delivery Room Air 09/16/24 13:06 Medical Decision Making Vital Signs Vital Signs: Vital Signs Temperature 36.7 C 09/16/24 13:06 Pulse Rate 74 09/16/24 13:06 Respiratory Rate 18 09/16/24 13:06 Blood Pressure 114/68 09/16/24 13:06 Pulse Oximetry 99 09/16/24 13:06 Oxygen Delivery Room Air 09/16/24 13:06 Temperature 36.7 C 09/16/24 13:06 Pulse Rate 74 09/16/24 13:06 Respiratory Rate 18 09/16/24 13:06 Blood Pressure 114/68 09/16/24 13:06 Pulse Oximetry 99 09/16/24 13:06 Oxygen Delivery Room Air 09/16/24 13:06 Discharge Plan Discharge Clinical Impression: Pharyngitis Patient Disposition: Home, Self-Care Condition: Stable Instructions: Antibiotic Form, Pharyngitis (ED) Patient Language: Faroese Prescriptions: New amoxicillin 500 mg tablet 500 mg PO Q12H Qty: 20 0RF No Action hydroxyzine HCl 25 mg tablet 25 mg PO BID PRN (Reason: anxiety) Qty: 60 1RF eszopiclone [Lunesta] 3 mg tablet 3 mg PO QHS PRN (Reason: insomnia) Qty: 30 1RF lorazepam 0.5 mg tablet 0.5 mg PO BID PRN (Reason: anxiety) Qty: 20 0RF fluoxetine 20 mg tablet See Rx Instructions .ROUTE .COMPLEX Qty: 90 0RF Dose Instruction: TAKE 1 TABLET BY MOUTH DAILY Rx Instructions: TAKE 1 TABLET BY MOUTH DAILY Follow-up/Referrals: Samuel Valdez MD [Primary Care Provider] - Time of Disposition: 13:45
[2024-09-17 10:05] LABS: EDSTREPNEGPOS1 Negative (Negative)
== END 2024-09-16 13:50 | disposition home or self-care (01) ==
PROVIDERS: Emergency Provider Nurse Practitioner; PCP Family Medicine
DX: J02.9 Acute pharyngitis, unspecified (principal); F17.210 Nicotine dependence, cigarettes, uncomplicated; M06.9 Rheumatoid arthritis, unspecified
CPT/HCPCS: 87081; 87880; 99213; G0463